=== PATIENT | male | born 1950 ===

== ENCOUNTER 2016-12-20 21:45 | Emergency (ER) | payer MEDICARE, MEDICAID ==
[2016-12-20 21:46] VITALS: BMI 43.2
[2016-12-20 22:03] VITALS: BP 129/74; PULSE 77; RESP 16; TEMP 98; O2SAT 99
[2016-12-20] MEDS ORDERED: Naproxen 500 MG TAB PO STA (22:15)
[2016-12-20] MEDS ORDERED: Naproxen 500 MG TAB PO ONE (22:16)
--- NOTE | 2016-12-20 23:02 | ED PDOC ---
Upper Extremity Pain/Injury Time Seen by Provider: 12/20/16 22:07 Chief Complaint (Nursing): Upper Extremity Problem/Injury Chief Complaint (Provider): Left wrist pain, s/p fall History Per: Patient History/Exam Limitations: no limitations Onset/Duration Of Symptoms: Mins Current Symptoms Are (Timing): Still Present Quality: "Pain" Additional Complaint(s): Pain of the distal wrist. Pt states he fell sideways and hit the the ulna area on the floor. Pt reports localized pain and swelling. no numbness/tingling. No previous wrist injury. Past Medical History Reviewed: Historical Data, Nursing Documentation, Vital Signs Vital Signs: Last Vital Signs Temp 98.0 F 12/20/16 21:59 Pulse 77 12/20/16 21:59 Resp 16 12/20/16 21:59 BP 129/74 12/20/16 21:59 Pulse Ox 99 12/20/16 21:59 - Medical History PMH: Benign Prostatic Hyperplasia, HTN, Hypercholesterolemia - Surgical History Surgical History: No Surg Hx - Family History Family History: States: Unknown Family Hx - Living Arrangements Living Arrangements: With Family - Social History Current smoker - smoking cessation education provided: No Alcohol: None Drugs: Denies - Allergies Allergies/Adverse Reactions: Allergies Allergy/AdvReac Type Severity Reaction Status Date / Time No Known Allergies Allergy Verified 07/01/14 13:17 Review of Systems ROS Statement: Except As Marked, All Systems Reviewed And Found Negative Musculoskeletal: Positive for: Other Physical Exam - Reviewed Nursing Documentation Reviewed: Yes Vital Signs Reviewed: Yes - Physical Exam Appears: Positive for: Well, Non-toxic, No Acute Distress Head Exam: Positive for: ATRAUMATIC, NORMAL INSPECTION, NORMOCEPHALIC Skin: Positive for: Normal Color (No ecchymosis ), Warm Eye Exam: Positive for: Normal appearance ENT: Positive for: Normal ENT Inspection Neck: Positive for: Normal, Painless ROM Respiratory: Negative for: Accessory Muscle Use, Respiratory Distress Pulses-Radial (L): 2+ Pulses-Radial (R): 2+ Back: Positive for: Normal Inspection Extremity: Positive for: Tenderness (Distal radius ), Capillary Refill, Swelling. Negative for: Normal ROM, Deformity Neurologic/Psych: Positive for: Alert, Oriented - ECG O2 Sat by Pulse Oximetry: 99 Medical Decision Making Medical Decision Making: (+) slightly displaced distal radial fracture Splint placed by automobile and property underwriter. No neurovascular compromise. Disposition - Clinical Impression Clinical Impression: Radial fracture - Patient ED Disposition Is Patient to be Admitted: No Counseled Patient/Family Regarding: Diagnosis, Need For Followup - Disposition Referrals: [facility] [Outside] Crystal Guidry MD [Staff Provider] - Disposition: Routine/Home Disposition Time: 23:51 Condition: GOOD Instructions: Wrist Fracture in Adults (ED) Print Language: J[place]ICAN
--- NOTE | 2016-12-21 10:36 | RAD ---
PROCEDURE: Left Wrist Radiographs. HISTORY: wrist pain, s/p fall, hit lateral wrist on ground COMPARISON: None. FINDINGS: BONES: There is a minimally displaced fracture of the distal radius. There is no angulation JOINTS: Normal. No dislocation. SOFT TISSUES: Normal. OTHER FINDINGS: None. IMPRESSION: There is a minimally displaced fracture of the distal radius. There is no angulation
== END 2016-12-21 00:39 | disposition home or self-care (01) ==
LOC: H.ER 21:45
DX: S52.92XA Unspecified fracture of left forearm, initial encounter for closed fracture (principal); W19.XXXA Unspecified fall, initial encounter; Y92.89 Other specified places as the place of occurrence of the external cause